=== PATIENT | female | born 1970 | race American Indian/Alaskan Native ===

== ENCOUNTER 2018-09-29 22:41 | Emergency (ER) | payer OTHER ==
[~2018-09-29] VITALS: Ht 160 cm; Wt 83.0 kg
[2018-09-29] MEDS ORDERED: METF500C PO (23:04)
[2018-09-29] MEDS ORDERED: GABA300 PO (23:04)
[2018-09-29] MEDS ORDERED: GLIP10 PO (23:04)
[2018-09-29] MEDS ORDERED: GLIM2 PO (23:05)
[2018-09-29] MEDS ORDERED: GLIP10ER PO (23:05)
[2018-09-29] MEDS ORDERED: TRAM50 PO (23:05)
[2018-09-29] MEDS ORDERED: NAPR500 PO (23:05)
[2018-09-30] MEDS ORDERED: Cyclobenzaprine5 MG PO (00:37)
== END 2018-09-30 01:10 | disposition home or self-care (01) ==
LOC: ER 22:41
DX: G51.0 Bell's palsy (principal); E11.9 Type 2 diabetes mellitus without complications; E78.00 Pure hypercholesterolemia, unspecified; F17.200 Nicotine dependence, unspecified, uncomplicated; Z88.0 Allergy status to penicillin; Z88.5 Allergy status to narcotic agent; Z88.1 Allergy status to other antibiotic agents; Z79.899 Other long term (current) drug therapy; Z79.84 Long term (current) use of oral hypoglycemic drugs
CPT/HCPCS: 96372; 99283-25; J1885

== ENCOUNTER 2020-05-06 07:24 | Emergency (ER) | payer OTHER ==
[~2020-05-06] VITALS: Ht 157.5 cm; Wt 81.7 kg
[~2020-05-06 07:24] MED LIST: Cyclobenzaprine5 MG PO; GABA300 PO; GLIM2 PO; GLIP10 PO; GLIP10ER PO; METF500C PO; NAPR500 PO; TRAM50 PO
[2020-05-06] MEDS ORDERED: ATOR20 PO (07:41)
[2020-05-06] MEDS ORDERED: TRADJENTA5 MG PO (07:45)
[2020-05-06] MEDS ORDERED: MELO7.5 PO (07:45)
[2020-05-06] MEDS ORDERED: LISI20 PO (07:46)
[2020-05-06 08:13] LABS: BASOPHILS ABSOLUTE AUTO 0.03 K/mm3 (0.00-0.23); BASOPHILS PERCENT AUTO 0 % (0-2); EOSINOPHILS ABSOLUTE AUTO 0.07 K/mm3 (0.00-0.68); EOSINOPHILS PERCENT AUTO 1 % (0-6); Hematocrit 39.4 % (33.0-51.0); Hemoglobin 13.4 g/dL (11.5-16.0); IMMATURE GRAN ABSOLUTE AUTO 0.06 K/mm3 (0.00-0.10); IMMATURE GRAN PERCENT AUTO 0 % (0-1); LYMPHOCYTES PERCENT AUTO 12 % (21-46); MONOCYTES ABSOLUTE AUTO 0.54 K/mm3 (0.16-1.47); MONOCYTES PERCENT AUTO 4 % (4-13); Mean Corpuscular Volume 88 fL (80-100); Mean Platelet Volume 9.5 fL (9.1-12.4); NEUTROPHILS ABSOLUTE AUTO 11.33 K/mm3 (1.96-9.15); NEUTROPHILS PERCENT AUTO 83 % (41-73); Platelet Count 228 K/mm3 (150-400); RDW Coefficient Variation 13.2 % (11.7-14.2); RDW Standard Deviation 43.2 fL (35.1-46.3); Red Blood Cell Count 4.46 M/mm3 (3.80-5.20); White Blood Cell Count 13.63 K/mm3 (4.00-11.30)
[2020-05-06 08:33] LABS: Alanine Aminotransfer (ALT/SGP 36 U/L (12-78); Albumin, Blood 3.6 g/dL (3.4-5.0); Albumin/Globulin Ratio 0.9 (0.8-1.8); Alk Phos 94 U/L (50-136); Anion Gap 6 mmol/L (6-16); Aspartate Aminotrans (AST/SGOT 20 U/L (12-37); Bilirubin, Total 0.5 mg/dL (0.1-1.0); Blood Urea Nitrogen 16 mg/dL (8-24); Bun/Creatinine Ratio 22.5 (12.0-20.0); CO2, Blood 28 mmol/L (21-32); Calcium, Blood 9.1 mg/dL (8.5-10.1); Chloride, Blood 103 mmol/L (98-108); Creatinine, Blood 0.71 mg/dL (0.40-1.00); Globulin, Blood 3.9 g/dL (2.2-4.0); Glomerular Filtration Rate >60 (60-); Glucose, Blood 179 mg/dL (70-99); Potassium, Blood 4.1 mmol/L (3.5-5.5); Sodium, Blood 137 mmol/L (136-145); Total Protein, Blood 7.5 g/dL (6.4-8.2)
[2020-05-06 09:19] LABS: Source, Urine Clean Catch
[2020-05-06 09:41] LABS: Appearance, Urine Clear (Clear); Bilirubin, Urine Neg (Neg); Blood, Urine 5+ (Neg); Color, Urine Yellow (P-Yellow); Glucose Qualitative, Urine Neg (Neg); Ketones, Urine 2+ (Neg); Leukocyte Esterase, Urine Neg (Neg); Nitrite, Urine Neg (Neg); Protein, Urine Neg (Neg); Urobilinogen, Urine NORM (Normal)
[2020-05-06 10:03] LABS: Red Blood Cells, Urine 50-100 /hpf (0-2)
[2020-05-06 10:04] LABS: Bacteria Few /hpf; Squamous Epithelial Cells Rare /hpf (Few)
[2020-05-06] MEDS ORDERED: ONDA4ODT MM (10:16)
== END 2020-05-06 10:49 | disposition home or self-care (01) ==
LOC: ER 07:24
PROVIDERS: Emergency Medicine
DX: K59.00 Constipation, unspecified (principal); E11.9 Type 2 diabetes mellitus without complications; E78.5 Hyperlipidemia, unspecified; I10 Essential (primary) hypertension; Z88.0 Allergy status to penicillin; Z88.5 Allergy status to narcotic agent; Z88.1 Allergy status to other antibiotic agents; Z79.84 Long term (current) use of oral hypoglycemic drugs; Z79.899 Other long term (current) drug therapy
CPT/HCPCS: 36415; 74176; 80053; 81001; 85025; 96361; 96374; 96375; 99284-25; J2405; J3010; J7030

== ENCOUNTER 2025-04-01 00:58 | Observation (INO) | payer OTHER ==
[~2025-04-01] VITALS: Ht 157.5 cm; Wt 76.7 kg
[~2025-04-01 00:58] MED LIST changes: +ATOR20 PO; +LISI20 PO; +MELO7.5 PO; +ONDA4ODT MM; +TRADJENTA5 MG PO
[2025-04-01] MEDS ORDERED: DiphenhydrAMINE HCl 50 MG/ML 1ML Vial IV ONE (02:05)
[2025-04-01 02:12] LABS: BASOPHILS ABSOLUTE AUTO 0.04 K/mm3 (0.00-0.23); BASOPHILS PERCENT AUTO 0 % (0-2); EOSINOPHILS ABSOLUTE AUTO 0.12 K/mm3 (0.00-0.68); EOSINOPHILS PERCENT AUTO 1 % (0-6); Hematocrit 38.1 % (33.0-51.0); Hemoglobin 13.6 g/dL (11.5-16.0); IMMATURE GRAN ABSOLUTE AUTO 0.05 K/mm3 (0.00-0.10); IMMATURE GRAN PERCENT AUTO 1 % (0-1); LYMPHOCYTES PERCENT AUTO 29 % (21-46); MONOCYTES ABSOLUTE AUTO 0.48 K/mm3 (0.16-1.47); MONOCYTES PERCENT AUTO 5 % (4-13); Mean Corpuscular HGB 31.2 pg (26.0-34.0); Mean Corpuscular HGB Conc 35.7 g/dL (31.5-36.5); Mean Corpuscular Volume 87 fL (80-100); Mean Platelet Volume 10.2 fL (9.1-12.4); NEUTROPHILS ABSOLUTE AUTO 5.83 K/mm3 (1.96-9.15); NEUTROPHILS PERCENT AUTO 64 % (41-73); Platelet Count 217 K/mm3 (150-400); RDW Standard Deviation 40.7 fL (35.1-46.3); Red Blood Cell Count 4.36 M/mm3 (3.80-5.20); White Blood Cell Count 9.12 K/mm3 (4.00-11.30)
[2025-04-01 02:16] LABS: International Normalized Ratio 0.98; Prothrombin Time Results 10.5 Sec (9.7-11.5)
[2025-04-01 02:20] LABS: Alanine Aminotransfer (ALT/SGP 25 U/L (12-78); Albumin, Blood 3.7 g/dL (3.4-5.0); Albumin/Globulin Ratio 1.1 (0.8-1.8); Alk Phos 113 U/L (50-136); Anion Gap 10 mmol/L (3-11); Aspartate Aminotrans (AST/SGOT 16 U/L (12-37); Bilirubin, Total 0.4 mg/dL (0.1-1.0); Blood Urea Nitrogen 13 mg/dL (8-24); Bun/Creatinine Ratio 14.4 (12.0-20.0); CO2, Blood 28 mmol/L (21-32); Calcium, Blood 9.7 mg/dL (8.5-10.1); Chloride, Blood 104 mmol/L (98-108); Ethanol (Alcohol), Blood, Med <3 mg/dL; Globulin, Blood 3.5 g/dL (2.2-4.0); Glomerular Filtration Rate 75 (60-); Glucose, Blood 119 mg/dL (70-99); Potassium, Blood 3.8 mmol/L (3.5-5.5); Sodium, Blood 138 mmol/L (136-145); Total Protein, Blood 7.2 g/dL (6.4-8.2)
[2025-04-01] MEDS ORDERED: Aspirin 81 MG Chew PO ONE (03:55)
[2025-04-01] MEDS ORDERED: Ondansetron HCl 2 MG / ML 2ML Vial IV PRN (04:10)
[2025-04-01] MEDS ORDERED: Acetaminophen 325 MG TABLET PO PRN (04:10)
[2025-04-01 04:33] LABS: CHOL/HDL RATIO 3.5; Cholesterol 177 mg/dL (50-200); HDL Cholesterol 50 mg/dL (>39); Low Density Lipoprotein Chol 102 mg/dL (0-110); Magnesium, Blood 1.8 mg/dL (1.6-2.4); Triglycerides 126 mg/dL (30-160); Very Low Density Lipoprot Chol 25 mg/dL (6-32)
[2025-04-01] MEDS ORDERED: OZEMPIC2 MG/0.75 SC (05:12)
[2025-04-01] MEDS ORDERED: AMIT50 PO (05:14)
[2025-04-01 07:25] VITALS: BP 133/81
[2025-04-01] MEDS ORDERED: Docusate Sodium 100 MG Cap PO SCH (09:00)
[2025-04-01] MEDS ORDERED: Enoxaparin 40 MG/0.4 ML SYR SC SCH (09:00)
[2025-04-01] MEDS ORDERED: Clopidogrel Bisulfate 75 MG Tab PO SCH (09:00)
[2025-04-01] MEDS ORDERED: Atorvastatin 40 MG Tab PO SCH (09:00)
[2025-04-01] MEDS ORDERED: Aspirin 81 MG Chew PO SCH (09:00)
[2025-04-01 11:30] VITALS: BP 111/66
[2025-04-01] MEDS ORDERED: ASPI81CH PO (12:00)
[2025-04-01] MEDS ORDERED: CLOP75 PO (12:05)
--- NOTE | 2025-04-01 16:26 | NUR ---
SHIFT SHIFT A&O X4. TELE: SINUS SEVERINO @ 76. E[address] PERFORMED THIS SHIFT. EF = 54%. NO SIGN OF PFO NOTED. DISCHARGING WITH NEW MEDS: PLAVIX X 21 DAYS AND ASA. DISCHARGE EDUCATION GIVEN. CLIENT LEFT UNIT VIA WHEELCHAIR WITH FAMILY ESCORT.
== END 2025-04-01 16:03 | disposition home or self-care (01) ==
LOC: ER 00:58 → MEDS 00:59 → ER 00:59 → ICUE 00:59 → EDBEDREQ 05:14 → EDBEDREQTM 05:14 → EDBEDREQSVC 05:14 → ER 05:20 → MEDS 05:28
PROVIDERS: Emergency Medicine; ADMIT Student in an Organized Health Care Education/Training Program
DX: G45.9 Transient cerebral ischemic attack, unspecified (principal); I10 Essential (primary) hypertension; E11.9 Type 2 diabetes mellitus without complications; E78.00 Pure hypercholesterolemia, unspecified; G51.0 Bell's palsy; F17.210 Nicotine dependence, cigarettes, uncomplicated; Z79.84 Long term (current) use of oral hypoglycemic drugs; Z79.899 Other long term (current) drug therapy; Z88.0 Allergy status to penicillin; Z88.5 Allergy status to narcotic agent; Z88.8 Allergy status to other drugs, medicaments and biological substances
CPT/HCPCS: 70450; 70496; 70498; 70551; 71045; 71275; 80053; 80061; 80320; 83036; 83735; 84443; 84484; 85025; 85610; 85730; 93005; 93010; 93306; 96372; 96374-59; 99285-25; A9270; G0378; J1200; J1650; Q9967